=== PATIENT | female | born 1970 | race Caucasian/White ===

== ENCOUNTER 2017-03-01 19:16 | Emergency (ER) | payer OTHER ==
--- NOTE | 2017-03-01 23:13 | RADIOLOGY REPORT (SQ) ---
EXAM DESCRIPTION: CHEST SINGLE VIEW COMPLETED DATE/TIME: 03/01/2017 10:27 pm REASON FOR STUDY: sob COMPARISON: None. EXAM PARAMETERS: NUMBER OF VIEWS: One view. TECHNIQUE: Single frontal radiographic view of the chest acquired. RADIATION DOSE: NA LIMITATIONS: None. FINDINGS: LUNGS AND PLEURA: No opacities, masses or pneumothorax. No pleural effusion. MEDIASTINUM AND HILAR STRUCTURES: No masses. Contour normal. HEART AND VASCULAR STRUCTURES: Heart normal in size. Normal vasculature. BONES: No acute findings. Multiple congenital rib anomalies. HARDWARE: None in the chest. OTHER: No other significant finding. IMPRESSION: NO ACUTE RADIOGRAPHIC FINDING IN THE CHEST. TECHNICAL DOCUMENTATION: JOB ID: [id number]
[2017-03-01 23:28] LABS: ABSOLUTE BASOPHILS # (AUTO) 0.1 10^3/uL (0.0-0.2); ABSOLUTE EOSINOPHILS # (AUTO) 0.3 10^3/uL (0.0-0.6); ABSOLUTE LYMPHOCYTES (AUTO) 3.9 10^3/uL (0.5-4.7); ABSOLUTE MONOCYTES (AUTO) 0.7 10^3/uL (0.1-1.4); ABSOLUTE NEUT (AUTO) 7.6 10^3/uL (1.7-8.2); BASOPHILS % (AUTO) 0.7 % (0-2); EOSINOPHILS % (AUTO) 2.4 % (0-6); HEMATOCRIT 41.2 % (36.0-47.0); HEMOGLOBIN 13.2 g/dL (12.0-15.5); HGB HCT DIFFERENCE -1.6; LYMPHOCYTES % (AUTO) 30.8 % (13-45); MEAN CORPUSCULAR HEMOGLOBIN 26.8 pg (27.0-33.4); MEAN CORPUSCULAR HGB CONC 32.2 g/dL (32.0-36.0); MEAN CORPUSCULAR VOLUME 83 fl (80-97); MONOCYTES % (AUTO) 5.8 % (3-13); RED BLOOD COUNT 4.95 10^6/uL (3.72-5.28); RED CELL DISTRIBUTION WIDTH 13.4 % (11.5-14.0); SEGMENTED NEUTROPHILS % (AUTO) 60.3 % (42-78); WHITE BLOOD COUNT 12.6 10^3/uL (4.0-10.5)
[2017-03-01 23:43] LABS: ANION GAP 12 (5-19); BLOOD UREA NITROGEN 12 mg/dL (7-20); CALCIUM 9.2 mg/dL (8.4-10.2); CARBON DIOXIDE 28 mmol/L (22-30); CHLORIDE 102 mmol/L (98-107); CREATININE RESULT 0.72 mg/dL (0.52-1.25); GLUCOSE 100 mg/dL (75-110); POTASSIUM 3.9 mmol/L (3.6-5.0); SODIUM 142.4 mmol/L (137-145)
--- NOTE | 2017-03-01 23:43 | EKG REPORT ---
SEVERITY:- NORMAL ECG - SINUS RHYTHM : Confirmed by: Rick Wilcox 01-Mar-2017 23:42:33
--- NOTE | 2017-03-02 00:22 | ER Document Report ---
ED General - General Chief Complaint: Shortness Of Breath Stated Complaint: SHORTNESS OF BREATH Time Seen by Provider: 03/01/17 22:11 Notes: Patient is a 46-year-old female with past medical history of obesity, htn, hld, who presents with 2 months of exertional sob, who presents with concerns of exertional sob. Denies any associated chest pain, nausea, vomiting, or syncope. Nothing is new or different about her symptoms today but she states she became increasingly concerned after another episode today. No history of DVT, pulmonary embolus, or pneumothorax. She has not seen a primary care doctor regarding today's concerns. Notes that she did have a stress test in August 2016 which was noted to be normal. She denies any hemoptysis. No estrogen use. Nothing improves or worsens her symptoms. TRAVEL OUTSIDE OF THE [place] IN LAST 30 DAYS: No Past Medical History - General Information source: Patient - Social History Smoking Status: Never Smoker Frequency of alcohol use: None Drug Abuse: None Lives with: Spouse/Significant other Family History: Reviewed & Not Pertinent Patient has suicidal ideation: No Patient has homicidal ideation: No Renal/ Medical History: Denies: Hx Peritoneal Dialysis Review of Systems - Review of Systems Notes: Constitutional: Negative for fever. HENT: Negative for sore throat. Eyes: Negative for visual changes. Cardiovascular: Negative for chest pain. Respiratory: Positive for shortness of breath. Gastrointestinal: Negative for abdominal pain, vomiting or diarrhea. Genitourinary: Negative for dysuria. Musculoskeletal: Negative for back pain. Skin: Negative for rash. Neurological: Negative for headaches, weakness or numbness. 10 point ROS negative except as marked above and in HPI. Physical Exam - Vital signs Vitals: Temp Pulse Resp BP Pulse Ox 98.2 F 83 20 116/83 96 03/01/17 20:15 03/01/17 20:15 03/01/17 20:15 03/01/17 20:15 03/01/17 20:15 Interpretation: Normal Notes: PHYSICAL EXAMINATION: GENERAL: Well-appearing, well-nourished and in no acute distress. HEAD: Atraumatic, normocephalic. EYES: Pupils equal round and reactive to light, extraocular movements intact, sclera anicteric, conjunctiva are normal. ENT: nares patent, oropharynx clear without exudates. Moist mucous membranes. NECK: Normal range of motion, supple without lymphadenopathy LUNGS: Breath sounds clear to auscultation bilaterally and equal. No wheezes rales or rhonchi. HEART: Regular rate and rhythm without murmurs ABDOMEN: Soft, nontender, normoactive bowel sounds. No guarding, no rebound. No masses appreciated. EXTREMITIES: Normal range of motion, no pitting or edema. No cyanosis. NEUROLOGICAL: No focal neurological deficits. Moves all extremities spontaneously and on command. PSYCH: Normal mood, normal affect. SKIN: Warm, Dry, normal turgor, no rashes or lesions noted. Course - Re-evaluation Re-evalutation: 03/02/17 00:21 Presentation of episodic shortness of breath over the last 2 months in an otherwise well appearing patient. Low clinical suspicion for ACS given clinical history, exam, EKG without ST elevations or depressions, and negative initial troponin. PE also seems unlikely given clinical history, absence of tachycardia or dyspnea. However, given that patient was having recurrent exertional dyspnea over the last 2 months a PE was a moderate possibility that a d-dimer assay was obtained and is noted to be negative. Will not proceed to CTA of the chest given his negative d-dimer. CXR without evidence of pneumothorax or pneumonia. No widened mediastinum. Aortic dissection also seems unlikely given history, symmetric pulses, CXR, and vitals. Exact etiology of patient's intermittent dyspnea on exertion over the last 2 months is uncertain at this time giving her reassuring evaluation here in the emergency department. I have asked that she follow-up with cardiology for consideration of an echocardiogram as well as a stress test. Of note patient did have a normal stress test 6 months ago. At this time will discharge with return precautions and follow-up recommendations. Verbal discharge instructions given a the bedside and opportunity for questions given. Medication warnings reviewed. Patient is in agreement with this plan and has verbalized understanding of return precautions and the need for primary care follow-up in the next 24-72 hours. 03/02/17 03:41 - Vital Signs Vital signs: Temp Pulse Resp BP Pulse Ox 98.0 F 75 18 121/77 98 03/02/17 00:33 03/02/17 00:33 03/02/17 00:33 03/02/17 00:33 03/02/17 00:33 - Laboratory Result Diagrams: 03/01/17 23:17 03/01/17 23:17 Laboratory results interpreted by me: 03/01/17 23:17 WBC 12.6 H MCH 26.8 L - Diagnostic Test Radiology reviewed: Image reviewed, Reports reviewed Radiology results interpreted by me: 03/02/17 00:25 Chest x-ray: No acute infiltrate or pneumothorax - EKG Interpretation by Me Additional EKG results interpreted by me: 03/02/17 00:25 Normal sinus rhythm. Rate 74. No ST elevations or depressions. QTC is 395. Discharge - Discharge Clinical Impression: Exertional dyspnea Condition: Good Disposition: HOME, SELF-CARE Additional Instructions: Please follow-up with the analog design engineer at your earliest ability for consideration of an echocardiogram as well as a stress test. Please return if you develop chest pain, persistent shortness of breath, vomiting, sweating, or any other symptoms that are worrisome to you. Referrals: SEAN HULL MD [ACTIVE STAFF] - Follow up in 3-5 days
[2017-03-02 00:34] VITALS: BP 121/77
== END 2017-03-02 00:32 | disposition home or self-care (01) ==
LOC: ER 19:16
DX: R06.00 Dyspnea, unspecified (principal)
CPT/HCPCS: 36415; 71010; 80048; 84484; 85025; 85379; 93005; 93010; 99285

== ENCOUNTER 2017-04-07 10:28 | Emergency (ER) | payer OTHER ==
--- NOTE | 2017-04-07 11:22 | ER Document Report ---
ED Headache - General Chief Complaint: Headache Stated Complaint: HEADACHE Time Seen by Provider: 04/07/17 11:21 Mode of Arrival: Ambulatory Information source: Patient TRAVEL OUTSIDE OF THE [place] IN LAST 30 DAYS: No - HPI Patient complains to provider of: Headache Patient reports: No: Brain neoplasm, Congenital anomally, Frequent migraines, Hx chronic headaches, Occasional migraines, Prior CVA, Prior neurologic eval, Prior hemorrhage, Prior TBI, [employer] Shunt Onset: Yesterday - EVENING Onset was: Gradual Timing: Still present Quality of pain: Dull, Other - SENSATION OF SCALP SORENESS Severity: Moderate Context: denies: CO exposure, Head injury, Insect bite, Meningitis exposure, Tick bite Preceding symptoms: denies: Typical of prior aura(s), Visual disturbance Associated symptoms: Chills, Nausea/vomiting - NAUSEA ONLY, NO EMESIS, Other - TACHYCARDIA LAST PM, UP TO 140. denies: Double/blurred vision, Fever, Photophobia, Speech problems, Stiff neck, Sweaty, Trouble walking Exacerbated by: Position - SLIGHTLY BETTER W/ HEAD ELEVATED Similar symptoms previously: No Recently seen / treated by doctor: No - Related Data Allergies/Adverse Reactions: adhesive tape Allergy (Verified 04/07/17 11:02) Home Medications: Current Home Medications Buspirone HCl [Buspirone HCl] 5 mg PO DAILY 04/07/17 [History] Clonazepam [Clonazepam] 1 tab PO QHS 04/07/17 [History] Duloxetine HCl [Duloxetine HCl] 60 mg PO DAILY 04/07/17 [History] Metoprolol Succinate 12.5 mg PO DAILY 04/07/17 [History] Montelukast Sodium 10 mg PO DAILY 04/07/17 [History] Ropinirole HCl [Ropinirole HCl] 4 mg PO QHS 04/07/17 [History] Past Medical History - General Information source: Patient - Social History Smoking Status: Never Smoker Cigarette use (# per day): No Chew tobacco use (# tins/day): No Frequency of alcohol use: None Drug Abuse: None Lives with: Family Family History: Reviewed & Not Pertinent Patient has suicidal ideation: No Patient has homicidal ideation: No - Past Medical History Cardiac Medical History: Reports: Other - TACHYCARDIA, TAKES METOPROLOL Pulmonary Medical History: Reports: None EENT Medical History: Reports: None Neurological Medical History: Reports: None Endocrine Medical History: Reports: None Renal/ Medical History: Reports: None. 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 Skin Medical History: Reports None Psychiatric Medical History: Reports: Hx Depression Past Surgical History: Reports: Hx Appendectomy, Hx Cholecystectomy, Hx Gynecologic Surgery - L ovary removed, endomitriosis, c section, Hx Orthopedic Surgery - herniated disk L4-L5, Hx Tonsillectomy - adenoids Review of Systems - Review of Systems Constitutional: See HPI EENT: No symptoms reported Cardiovascular: No symptoms reported Respiratory: No symptoms reported Gastrointestinal: See HPI Genitourinary: No symptoms reported Female Genitourinary: No symptoms reported Musculoskeletal: No symptoms reported Skin: No symptoms reported Neurological/Psychological: See HPI Physical Exam - Vital signs Interpretation: Normal. No: Tachycardic, Tachypneic, Febrile - General General appearance: Appears well, Alert In distress: None - HEENT Head: Normocephalic Eyes: Normal, Other - NO PHOTOPHOBIA Conjunctiva: Normal Extraocular movements intact: Yes Pupils: PERRL Anterior chamber: Normal Fundascopic: Normal Ears: Normal External canal: Normal Tympanic membrane: Normal Nasal: Normal Mouth/Lips: Normal Mucous membranes: Dry - MILDLY Pharynx: Normal Neck: Normal, Supple - Respiratory Respiratory status: No respiratory distress Breath sounds: Normal - Cardiovascular Rhythm: Regular Heart sounds: Normal auscultation Murmur: No - Abdominal Inspection: Obese Bowel sounds: Normal - Extremities General upper extremity: Normal inspection General lower extremity: Normal inspection - Neurological Neuro grossly intact: Yes Cognition: Normal Orientation: AAOx4 - Psychological Associated symptoms: Normal affect, Normal mood - Skin Skin Temperature: Warm Skin Moisture: Dry Skin Color: Normal Skin Turgor: Elastic Course - Re-evaluation Re-evalutation: 04/07/17 15:25 PATIENT REPORTS ONLY SLIGHT IMPROVEMENT. RESULTS OF TESTING DISCUSSED. WILL TREAT SYMPTOMATICALLY. - Laboratory Result Diagrams: 04/07/17 10:50 04/07/17 10:50 Laboratory results interpreted by me: 04/07/17 10:50 Alkaline Phosphatase 127 H - Diagnostic Test Radiology reviewed: Image reviewed, Reports reviewed Discharge - Discharge Clinical Impression: Headache Qualifiers: Headache type: tension-type Headache chronicity pattern: acute headache Intractability: not intractable Qualified Code(s): G44.209 - Tension-type headache, unspecified, not intractable Condition: Stable Disposition: HOME, SELF-CARE Instructions: Headache ([facility]), Oral Narcotic Medication ([facility]) Additional Instructions: REST DRINK PLENTY OF FLUIDS. YOU MAY TAKE FIORICET FOR HEADACHE RELIEF IF NEEDED. CONTINUE YOUR USUAL MEDICATIONS. FOLLOW UP WITH YOUR PRIMARY CARE PROVIDER IF HEADACHE DOES NOT RESOLVE IN 24-48 HOURS. RETURN TO E.R. IF YOU GET WORSE IN ANY WAY. Prescriptions: Butalb/Acetaminophen/Caffeine [Fioricet (50-325-40 mg) Tablet] 1 - 2 tab PO Q4H PRN #20 each PRN Reason: For Headache
[2017-04-07] MEDS ORDERED: NORMAL SALINE 1000 ML 1,000 ML IV ONE (11:55)
[2017-04-07 12:41] LABS: ABSOLUTE BASOPHILS # (AUTO) 0.1 10^3/uL (0.0-0.2); ABSOLUTE EOSINOPHILS # (AUTO) 0.2 10^3/uL (0.0-0.6); ABSOLUTE LYMPHOCYTES (AUTO) 2.7 10^3/uL (0.5-4.7); ABSOLUTE MONOCYTES (AUTO) 0.6 10^3/uL (0.1-1.4); ABSOLUTE NEUT (AUTO) 6.4 10^3/uL (1.7-8.2); BASOPHILS % (AUTO) 0.7 % (0-2); LYMPHOCYTES % (AUTO) 27.4 % (13-45); MEAN CORPUSCULAR HEMOGLOBIN 27.8 pg (27.0-33.4); MEAN CORPUSCULAR HGB CONC 33.3 g/dL (32.0-36.0); MEAN CORPUSCULAR VOLUME 83 fl (80-97); MONOCYTES % (AUTO) 6.4 % (3-13); RED BLOOD COUNT 5.04 10^6/uL (3.72-5.28); RED CELL DISTRIBUTION WIDTH 13.5 % (11.5-14.0); SEGMENTED NEUTROPHILS % (AUTO) 63.5 % (42-78)
--- NOTE | 2017-04-07 12:59 | RADIOLOGY REPORT (SQ) ---
EXAM DESCRIPTION: CT HEAD WITHOUT COMPLETED DATE/TIME: 04/07/2017 12:36 pm REASON FOR STUDY: HEADACHE COMPARISON: None. TECHNIQUE: Axial images acquired through the brain without intravenous contrast. Images reviewed wi th bone, brain and subdural windows. Images stored on PACS. All CT scanners at this facility use dose modulation, iterative reconstruction, and/or weight based d osing when appropriate to reduce radiation dose to as low as reasonably achievable (ALARA). [facility]: Dose Right [facility]: CareDose [facility]: Dose Right [facility]: Teradose 4D [facility]: Vatler RADIATION DOSE: Up-to-date CT equipment and radiation dose reduction techniques were employed. CTDIv ol: 64.6 mGy. DLP: 1163 mGy-cm. mGy. LIMITATIONS: None. FINDINGS: VENTRICLES: Normal size and contour. CEREBRUM: No masses. No hemorrhage. No midline shift. Normal de [place] santos/white matter differentiation. N o evidence for acute infarction. CEREBELLUM: No masses. No hemorrhage. No alteration of density. No evidence for acute infarction. EXTRAAXIAL SPACES: No fluid collections. No masses. ORBITS AND GLOBE: No intra- or extraconal masses. Normal contour of globe without masses. CALVARIUM: No fracture. PARANASAL SINUSES: No fluid or mucosal thickening. SOFT TISSUES: No mass or hematoma. OTHER: No other significant finding. IMPRESSION: NORMAL BRAIN CT WITHOUT CONTRAST. TECHNICAL DOCUMENTATION: JOB ID: [id number] Quality ID # [id number]: Final reports with documentation of one or more dose reduction techniques (e.g., Au tomated exposure control, adjustment of the mA and/or kV according to patient size, use of iterative reconstruction technique) 2010 [employer]- All Rights Reserved
[2017-04-07 13:23] LABS: ALANINE AMINOTRANSFERASE 27 U/L (9-52); ALBUMIN 4.1 g/dL (3.5-5.0); ALKALINE PHOSPHATASE 127 U/L (38-126); ANION GAP 11 (5-19); ASPARTATE AMINO TRANSFERASE 25 U/L (14-36); BILIRUBIN,DIRECT 0.3 mg/dL (0.0-0.4); BILIRUBIN,TOTAL 0.5 mg/dL (0.2-1.3); BLOOD UREA NITROGEN 9 mg/dL (7-20); CALCIUM 9.3 mg/dL (8.4-10.2); CARBON DIOXIDE 28 mmol/L (22-30); CHLORIDE 102 mmol/L (98-107); CREATININE RESULT 0.66 mg/dL (0.52-1.25); GLUCOSE 90 mg/dL (75-110); POTASSIUM 4.2 mmol/L (3.6-5.0); SODIUM 140.8 mmol/L (137-145); TOTAL PROTEIN 7.1 g/dL (6.3-8.2)
--- NOTE | 2017-04-07 13:43 | EKG REPORT ---
SEVERITY:- NORMAL ECG - SINUS RHYTHM : Confirmed by: Lauren Lucia MD 07-Apr-2017 13:42:30
[2017-04-07] MEDS ORDERED: BUTALB/ACETAMINOPHEN/CAFFEINE 1 TAB EACH PO ONE (15:23)
[2017-04-07 15:35] VITALS: BP 119/76
== END 2017-04-07 15:38 | disposition home or self-care (01) ==
LOC: ER 10:28
DX: G44.209 Tension-type headache, unspecified, not intractable (principal); R11.0 Nausea; R68.83 Chills (without fever); Z90.49 Acquired absence of other specified parts of digestive tract
CPT/HCPCS: 93005; 99284; 96360; 36415; 85025; 80053; 70450; 93010; J3490; J7030

== ENCOUNTER 2018-09-28 18:15 | Emergency (ER) | payer MEDICAID, OTHER ==
[2018-09-28 18:22] VITALS: BP 138/81
--- NOTE | 2018-09-28 18:31 | ER Document Report ---
ED Medical Screen (RME) - General Chief Complaint: Cough Stated Complaint: COUGH Time Seen by Provider: 09/28/18 18:29 Mode of Arrival: Ambulatory Information source: Patient TRAVEL OUTSIDE OF THE [place] IN LAST 30 DAYS: No - HPI Patient complains to provider of: cough; flu symptoms Onset: Other - pt. states she has had these symptoms for the past several weeks - Related Data Allergies/Adverse Reactions: adhesive tape Allergy (Verified 04/07/17 11:02) linaclotide [From Linzess] Allergy (Verified 09/28/18 18:27) Past Medical History - Social History Chew tobacco use (# tins/day): No Frequency of alcohol use: None Drug Abuse: None Renal/ Medical History: Denies: Hx Peritoneal Dialysis GI Medical History: Reports: Hx Gastroesophageal Reflux Disease Musculoskeltal Medical History: Reports Hx Arthritis - SPINE Psychiatric Medical History: Reports: Hx Depression Past Surgical History: Reports: Hx Appendectomy, Hx Cholecystectomy, Hx Gynecologic Surgery - L ovary removed, endomitriosis, c section, Hx Orthopedic Surgery - herniated disk L4-L5, Hx Tonsillectomy - adenoids Physical Exam - Vital signs Vitals: Temp Pulse Resp BP Pulse Ox 98.6 F 82 20 138/81 H 97 09/28/18 18:19 09/28/18 18:19 09/28/18 18:19 09/28/18 18:19 09/28/18 18:19 Course - Vital Signs Vital signs: Temp Pulse Resp BP Pulse Ox 98.6 F 82 20 138/81 H 97 09/28/18 18:19 09/28/18 18:19 09/28/18 18:19 09/28/18 18:19 09/28/18 18:19
[2018-09-28 18:57] LABS: ABSOLUTE BASOPHILS # (AUTO) 0.1 10^3/uL (0.0-0.2); ABSOLUTE EOSINOPHILS # (AUTO) 1.3 10^3/uL (0.0-0.6); ABSOLUTE LYMPHOCYTES (AUTO) 2.7 10^3/uL (0.5-4.7); ABSOLUTE MONOCYTES (AUTO) 0.6 10^3/uL (0.1-1.4); ABSOLUTE NEUT (AUTO) 4.3 10^3/uL (1.7-8.2); BASOPHILS % (AUTO) 1.1 % (0-2); EOSINOPHILS % (AUTO) 14.2 % (0-6); HEMATOCRIT 44.9 % (36.0-47.0); LYMPHOCYTES % (AUTO) 30.4 % (13-45); MEAN CORPUSCULAR HEMOGLOBIN 29.7 pg (27.0-33.4); MEAN CORPUSCULAR HGB CONC 33.5 g/dL (32.0-36.0); MEAN CORPUSCULAR VOLUME 89 fl (80-97); MONOCYTES % (AUTO) 6.5 % (3-13); PLATELET COUNT 275 10^3/uL (150-450); RED BLOOD COUNT 5.06 10^6/uL (3.72-5.28); RED CELL DISTRIBUTION WIDTH 13.7 % (11.5-14.0); SEGMENTED NEUTROPHILS % (AUTO) 47.8 % (42-78); TOTAL CELLS COUNTED % (AUTO) 100 %
[2018-09-28 18:59] LABS: APPEARANCE,URINE CLEAR; BILIRUBIN,URINE NEGATIVE (NEGATIVE); COLOR,URINE STRAW; GLUCOSE, URINE NEGATIVE (NEGATIVE); KETONES,URINE NEGATIVE (NEGATIVE); LEUKOCYTE ESTERASE,URINE NEGATIVE (NEGATIVE); NITRITE,URINE NEGATIVE (NEGATIVE); PROTEIN,URINE NEGATIVE (NEGATIVE); URINE SPECIFIC GRAVITY 1.004; UROBILINOGEN,URINE NEGATIVE mg/dL (<2.0)
[2018-09-28 19:11] LABS: A TYPE INFLUENZA AG NEGATIVE (NEGATIVE); B INFLUENZA AG NEGATIVE (NEGATIVE)
[2018-09-28 19:14] LABS: ALANINE AMINOTRANSFERASE 31 U/L (9-52); ALBUMIN 4.2 g/dL (3.5-5.0); ALKALINE PHOSPHATASE 93 U/L (38-126); ANION GAP 5 (5-19); ASPARTATE AMINO TRANSFERASE 28 U/L (14-36); BILIRUBIN,DIRECT 0.1 mg/dL (0.0-0.4); BILIRUBIN,TOTAL 0.5 mg/dL (0.2-1.3); BLOOD UREA NITROGEN 6 mg/dL (7-20); CALCIUM 9.2 mg/dL (8.4-10.2); CARBON DIOXIDE 31 mmol/L (22-30); CHLORIDE 105 mmol/L (98-107); GLUCOSE 104 mg/dL (75-110); POTASSIUM 3.9 mmol/L (3.6-5.0); SODIUM 140.5 mmol/L (137-145); TOTAL PROTEIN 6.4 g/dL (6.3-8.2)
--- NOTE | 2018-09-28 19:20 | RADIOLOGY REPORT (SQ) ---
EXAM DESCRIPTION: CHEST 2 VIEWS COMPLETED DATE/TIME: 09/28/2018 6:54 pm REASON FOR STUDY: cough; fever COMPARISON: 03/01/2017 TECHNIQUE: Frontal and lateral radiographic views of the chest acquired. NUMBER OF VIEWS: Two view. LIMITATIONS: None. FINDINGS: LUNGS AND PLEURA: No pneumothorax. No consolidation or pleural effusion. MEDIASTINUM AND HILAR STRUCTURES: Stable. HEART AND VASCULAR STRUCTURES: Stable. BONES: No acute findings. HARDWARE: None in the chest. OTHER: No other significant finding. IMPRESSION: NO ACUTE FINDINGS. TECHNICAL DOCUMENTATION: JOB ID: [id number] [place]-72 2010 [employer]- All Rights Reserved Reading location - IP/workstation name: [email or web address]
[2018-09-28] MEDS ORDERED: IPRATROPIUM/ALBUTEROL 0.5-2.5 MG/3 ML AMPUL NEB ONE (20:06)
[2018-09-28] MEDS ORDERED: BENZONATATE 100 MG CAPSULE PO ONE (20:06)
--- NOTE | 2018-09-28 20:11 | ER Document Report ---
HPI - HPI Time Seen by Provider: 09/28/18 18:29 Pain Level: 4 Context: Patient is a 48-year-old female who presents to the emergency department with a chief complaint of a cough for the past 2 months. Cough is productive, denies hemoptysis. She has a sore throat. She was treated with antibiotics and steroids multiple times for bronchitis and laryngitis. She denies any fever, but has had some body chills. She denies any nausea, vomiting, or shortness of breath. She smokes 2 packs of cigarettes a day. - CONSTITUTIONAL Constitutional: DENIES: Fever, Chills - EENT EENT: REPORTS: Sore Throat - NEURO Neurology: DENIES: Headache - CARDIOVASCULAR Cardiovascular: DENIES: Chest pain - RESPIRATORY Respiratory: REPORTS: Coughing - REPRODUCTIVE Reproductive: DENIES: : - DERM Skin Color: Normal Past Medical History - General Information source: Patient - Social History Smoking Status: Current Every Day Smoker Chew tobacco use (# tins/day): No Frequency of alcohol use: None Drug Abuse: None Family History: Reviewed & Not Pertinent Patient has suicidal ideation: No Patient has homicidal ideation: No Renal/ Medical History: Denies: Hx Peritoneal Dialysis GI Medical History: Reports: Hx Gastroesophageal Reflux Disease Musculoskeletal Medical History: Reports Hx Arthritis - SPINE Psychiatric Medical History: Reports: Hx Depression Past Surgical History: Reports: Hx Appendectomy, Hx Cholecystectomy, Hx Gynecologic Surgery - L ovary removed, endomitriosis, c section, Hx Orthopedic Surgery - herniated disk L4-L5, Hx Tonsillectomy - adenoids Vertical Provider Document - CONSTITUTIONAL Notes: PHYSICAL EXAMINATION: GENERAL: Appears well, healthy, well-nourished, no acute distress. HEAD: Normocephalic, atraumatic. EYES: PERRL, conjunctiva normal, all extraocular movements intact, sclera nonicteric ENT: Moist mucous membranes. NECK: Supple, no noticeable swelling, redness, rash. Normal range of motion. LUNGS: Expiratory wheezes noted throughout. CARDIOVASCULAR: S1-S2, regular rate, regular rhythm. Radial pulses 2+, normal. ABDOMEN: Normoactive bowel sounds. Soft, nontender, no guarding, no rebound tenderness, and no masses palpated. EXTREMITIES: Normal strength and range of motion, no pitting or edema. No cyanosis. NEUROLOGICAL: Moves all extremities upon command. Strength 5/5 in all extremities. PSYCH: Normal mood, normal affect. SKIN: Warm, dry. No rash, lesions, ulcerations noted. Normal skin turgor. - INFECTION CONTROL TRAVEL OUTSIDE OF THE [place] IN LAST 30 DAYS: No Course - Re-evaluation Re-evalutation: 09/28/18 20:05 The patient has expiratory wheezes noted bilaterally. A DuoNeb treatment will be ordered and benzonatate will be ordered for her cough. 09/28/18 20:20 Unfortunately the patient eloped without finishing her treatment. Her workup is not complete. The nursing staff is aware. - Vital Signs Vital signs: Temp Pulse Resp BP Pulse Ox 98.6 F 82 20 138/81 H 97 09/28/18 18:19 09/28/18 18:19 09/28/18 18:19 09/28/18 18:19 09/28/18 18:19 - Laboratory Result Diagrams: 09/28/18 18:43 09/28/18 18:43 Laboratory results interpreted by me: 09/28/18 09/28/18 18:43 18:43 Eosinophils % 14.2 H Absolute Eosinophils 1.3 H Carbon Dioxide 31 H BUN 6 L Discharge - Discharge Clinical Impression: Cough Disposition: ELOPED
== END 2018-09-28 20:30 | disposition left against medical advice (07) ==
LOC: ER 18:15
DX: R05 Cough (principal); J02.9 Acute pharyngitis, unspecified; R68.83 Chills (without fever); F17.210 Nicotine dependence, cigarettes, uncomplicated; R06.2 Wheezing; Z53.20 Procedure and treatment not carried out because of patient's decision for unspecified reasons
CPT/HCPCS: 36415; 71046; 80053; 81001; 85025; 87804; 99281

== ENCOUNTER 2019-12-23 23:38 | Emergency (ER) | payer MEDICAID ==
[2019-12-23] MEDS ORDERED: ONDANSETRON HCL INJ/PF 4 MG/2 ML SDV IV ONE (23:51)
[2019-12-24] MEDS ORDERED: NORMAL SALINE 1000 ML 1,000 ML IV ONE (00:12)
[2019-12-24] MEDS ORDERED: MORPHINE SULFATE 10 MG/ML INJ IV ONE (00:12)
[2019-12-24] MEDS ORDERED: ONDANSETRON HCL INJ/PF 4 MG/2 ML SDV ONE (00:13)
[2019-12-24] MEDS ORDERED: PANTOPRAZOLE SODIUM 40 MG VIAL IV ONE (00:13)
--- NOTE | 2019-12-24 00:14 | ER Document Report ---
ED GI/ - General Chief Complaint: Abdominal Pain Stated Complaint: ABDOMINAL PAIN Time Seen by Provider: 12/24/19 00:05 Primary Care Provider: ADRIANE RICHEY PA-C [Primary Care Provider] - Follow up as needed Notes: Patient is a 49-year-old female that comes emergency department for chief complaint of mid upper abdominal pain with vomiting. She states this started at 3 PM, she vomited about 8 times, nonbloody. She reports normal normal bowel movements. She denies fever. She denies chest pain, flank pain. She has had a cholecystectomy, has a history of gastric sleeve, also has a history of pancreatitis. She states she has not drink alcohol in 2 days, she smokes daily, denies recreational drugs. Daily medications are omeprazole, Seroquel, Klonopin. Patient states she is already scheduled and awaiting endoscopy with her [facility]. TRAVEL OUTSIDE OF THE [place] IN LAST 30 DAYS: No - Related Data Allergies/Adverse Reactions: adhesive tape Allergy (Verified 04/07/17 11:02) linaclotide [From Linzess] Allergy (Verified 09/28/18 18:27) Past Medical History - General Information source: Patient - Social History Smoking Status: Current Every Day Smoker Frequency of alcohol use: None Drug Abuse: None Lives with: Family Family History: Reviewed & Not Pertinent Patient has suicidal ideation: No Patient has homicidal ideation: No Endocrine Medical History: Reports: Hx Diabetes Mellitus Type 2 - diet controlled Renal/ Medical History: Denies: Hx Peritoneal Dialysis GI Medical History: Reports: Hx Gastroesophageal Reflux Disease Musculoskeletal Medical History: Reports Hx Arthritis - SPINE Psychiatric Medical History: Reports: Hx Depression Past Surgical History: Reports: Hx Appendectomy, Hx Section, Hx Cholecystectomy, Hx Gynecologic Surgery - L ovary removed, endomitriosis, c section, Hx Orthopedic Surgery - herniated disk L4-L5, Hx Tonsillectomy - adenoids - Immunizations Hx Diphtheria, Pertussis, Tetanus Vaccination: Yes Review of Systems - Review of Systems Constitutional: No symptoms reported EENT: No symptoms reported Cardiovascular: No symptoms reported Respiratory: No symptoms reported Gastrointestinal: See HPI Genitourinary: No symptoms reported Female Genitourinary: No symptoms reported Musculoskeletal: No symptoms reported Skin: No symptoms reported Hematologic/Lymphatic: No symptoms reported Neurological/Psychological: No symptoms reported Physical Exam - Vital signs Vitals: Temp Pulse Resp BP Pulse Ox 98.2 F 77 19 160/92 H 99 12/23/19 23:43 12/23/19 23:43 12/23/19 23:43 12/23/19 23:43 12/23/19 23:43 - Notes Notes: GENERAL: Slightly restless but not in severe distress HEAD: Normocephalic, atraumatic. EYES: Pupils equal, round, and reactive to light. Extraocular movements intact. ENT: Oral mucosa moist, tongue midline. Oropharynx unremarkable. Airway patent. NECK: Full range of motion. Supple. Trachea midline. No lymphadenopathy. LUNGS: Clear to auscultation bilaterally, no wheezes, rales, or rhonchi. No respiratory distress. Non-tender chest wall. HEART: Regular rate and rhythm. No murmur ABDOMEN: Tenderness in the mid upper abdomen and left upper quadrant. Remaining abdomen is soft and benign. No guarding, rigidity, or distention. Bowel sounds are present. GENITOURINARY: Deferred EXTREMITIES: Moves all 4 extremities spontaneously. No edema, normal radial and dorsalis pedis pulses bilaterally. No cyanosis. BACK: no cervical, thoracic, lumbar midline tenderness. No saddle anesthesia, normal distal neurovascular exam. Moves all extremities in full range of motion. NEUROLOGICAL: Alert and oriented x3. Normal speech. Cranial nerves II through XII grossly intact. Strength 5/5 in all extremities. PSYCH: Somewhat restless SKIN: Warm, dry, normal turgor. No rashes or lesions noted. Course - Re-evaluation Re-evalutation: Patient initially somewhat uncomfortable and restless in appearance, she has tenderness along the epigastric and left upper quadrant areas, remaining abdomen is soft and benign. Patient describes the pain as "a burning sharp pain" and she is nauseated. After initial medications patient is improved, she was given p.o. medications including Carafate, Phenergan, Percocet. On reevaluation she appears comfortable. She is tolerated p.o. without any difficulty, she drank fluids without any difficulty. CBC shows mild leukocytosis with elevation of neutrophils, nonspecific given patient's exam. Chemistry unremarkable, lipase unremarkable, hCG is negative. Patient has a gastric sleeve, she drinks alcohol frequently reportedly, she smokes, she drinks a lot of caffeine. I suspect a component of esophagitis/gastritis. Patient already has follow-up endoscopy plan because of intermittent symptoms which were worse tonight. Very low suspicion of acute abdomen. Patient will be discharged with recommended adjustments to her lifestyle and diet, medications, follow-up instructions, and return precautions which I discussed in detail. Patient states understanding and agreement with plan. Stable and well-appearing at time of discharge. - Vital Signs Vital signs: Temp Pulse Resp BP Pulse Ox 98.1 F 74 20 145/91 H 96 12/24/19 03:30 12/24/19 01:40 12/24/19 03:30 12/24/19 03:30 12/24/19 03:30 - Laboratory Result Diagrams: 12/24/19 00:15 12/24/19 00:15 Laboratory results interpreted by me: 12/24/19 12/24/19 00:15 00:15 WBC 12.9 H Absolute Neuts (auto) 10.3 H Seg Neutrophils % 79.7 H BUN 6 L Glucose 132 H Discharge - Discharge Clinical Impression: Upper abdominal pain Vomiting Qualifiers: Vomiting type: unspecified Vomiting Intractability: non-intractable Nausea presence: with nausea Qualified Code(s): R11.2 - Nausea with vomiting, unspecified Condition: Stable Disposition: HOME, SELF-CARE Additional Instructions: Your symptoms and examination indicate gastritis/esophagitis (inflammation of your upper gastrointestinal tract). Take Phenergan for nausea, take Carafate and Pepcid as prescribed to help treat this, you can take additional Rolaids, Tums, Maalox, etc. if needed. Continue your current medications otherwise. Avoid NSAIDs, alcohol, smoking, caffeine, spicy food. Start with clear fluids, progress to bland diet. Follow-up with your [facility] for additional evaluation management including your endoscopy. Return if you worsen including uncontrolled vomiting, vomiting blood, black stools, severe pain, fever of 100.4 or greater, or any other concerning or worsening symptoms. Prescriptions: Sucralfate [Carafate 1 gm Tablet] 1 gm PO QID #20 tablet Famotidine [Pepcid 20 mg Tablet] 20 mg PO BID #14 tablet Promethazine HCl [Phenergan 25 mg Tablet] 25 mg PO Q6H PRN #20 tablet PRN Reason: Referrals: ADRIANE RICHEY PA-C [Primary Care Provider] - Follow up as needed
[2019-12-24 00:36] LABS: ABSOLUTE BASOPHILS # (AUTO) 0.1 10^3/uL (0.0-0.2); ABSOLUTE EOSINOPHILS # (AUTO) 0.3 10^3/uL (0.0-0.6); ABSOLUTE LYMPHOCYTES (AUTO) 1.7 10^3/uL (0.5-4.7); ABSOLUTE MONOCYTES (AUTO) 0.5 10^3/uL (0.1-1.4); ABSOLUTE NEUT (AUTO) 10.3 10^3/uL (1.7-8.2); BASOPHILS % (AUTO) 0.7 % (0-2); EOSINOPHILS % (AUTO) 2.4 % (0-6); HEMATOCRIT 43.5 % (36.0-47.0); HEMOGLOBIN 14.7 g/dL (12.0-15.5); LYMPHOCYTES % (AUTO) 13.3 % (13-45); MEAN CORPUSCULAR HEMOGLOBIN 29.4 pg (27.0-33.4); MEAN CORPUSCULAR HGB CONC 33.9 g/dL (32.0-36.0); MEAN CORPUSCULAR VOLUME 87 fl (80-97); MONOCYTES % (AUTO) 3.9 % (3-13); PLATELET COUNT 301 10^3/uL (150-450); RED BLOOD COUNT 5.01 10^6/uL (3.72-5.28); RED CELL DISTRIBUTION WIDTH 13.7 % (11.5-14.0); SEGMENTED NEUTROPHILS % (AUTO) 79.7 % (42-78); TOTAL CELLS COUNTED % (AUTO) 100 %; WHITE BLOOD COUNT 12.9 10^3/uL (4.0-10.5)
[2019-12-24 00:51] LABS: ALBUMIN 4.5 g/dL (3.5-5.0); ALKALINE PHOSPHATASE 126 U/L (38-126); ANION GAP 6 (5-19); ASPARTATE AMINO TRANSFERASE 28 U/L (14-36); BILIRUBIN,DIRECT 0.1 mg/dL (0.0-0.4); BILIRUBIN,TOTAL 0.6 mg/dL (0.2-1.3); BLOOD UREA NITROGEN 6 mg/dL (7-20); CALCIUM 9.3 mg/dL (8.4-10.2); CARBON DIOXIDE 30 mmol/L (22-30); CHLORIDE 102 mmol/L (98-107); GLUCOSE 132 mg/dL (75-110); POTASSIUM 3.6 mmol/L (3.6-5.0); TOTAL PROTEIN 7.5 g/dL (6.3-8.2)
[2019-12-24] MEDS ORDERED: SUCRALFATE 1 GM TABLET PO ONE (01:31)
[2019-12-24] MEDS ORDERED: PROMETHAZINE HCL 25 MG TABLET PO ONE (01:31)
[2019-12-24] MEDS ORDERED: OXYCODONE-ACETAMINOPHEN 5-325 MG TABLET PO ONE (01:31)
[2019-12-24] MEDS ORDERED: HYDROCODONE/ACETAMINOPHEN 5-325 MG (6 TAB/ER DISP) PO PRN (02:47)
[2019-12-24] MEDS ORDERED: ONDANSETRON ODT 4 MG TAB (6 TAB/ER DISP) PO PRN (02:47)
[2019-12-24 03:41] VITALS: BP 145/91
== END 2019-12-24 03:32 | disposition home or self-care (01) ==
LOC: ER 23:38
DX: R11.2 Nausea with vomiting, unspecified (principal); R10.10 Upper abdominal pain, unspecified; F17.200 Nicotine dependence, unspecified, uncomplicated; Z90.49 Acquired absence of other specified parts of digestive tract; Z98.84 Bariatric surgery status; E11.9 Type 2 diabetes mellitus without complications
CPT/HCPCS: 99284; 96361; 96374; 96375; 36415; 83690; 84703; 85025; 80053; J2270; C9113; J3490 ×2; J2405; J7030

== ENCOUNTER 2019-12-25 05:41 | Emergency (ER) | payer MEDICAID ==
[2019-12-25] MEDS ORDERED: RINGERS SOLUTION,LACTATED 1,000 ML IV ONE (06:45)
[2019-12-25] MEDS ORDERED: METOCLOPRAMIDE HCL INJ/PF 10 MG/2 ML SDV IV ONE (06:45)
[2019-12-25] MEDS ORDERED: DIPHENHYDRAMINE HCL 50 MG/ML VIAL IV ONE (06:46)
--- NOTE | 2019-12-25 07:20 | RADIOLOGY REPORT (SQ) ---
EXAM DESCRIPTION: XR ABDOMEN SUPINE AND ERECT WITH CHEST (ABD ACUTE SERIES) COMPLETED DATE/TME: 12/25/2019 06:46 CLINICAL HISTORY: 49 years Female, abd pain, n,v Comparison: None. NUMBER OF VIEWS/TECHNIQUE: 3 LIMITATIONS: None. FINDINGS: Intestinal gas pattern is within normal limits. No suspicious calcification. Grossly intact skeletal structures. No acute cardiopulmonary findings.Right upper abdominal clips. IUD. Rib deformities at the posterior right mid hemithorax, indeterminate age. Cervical spinal hardware. IMPRESSION: No acute findings.
[2019-12-25 07:46] LABS: ABSOLUTE BASOPHILS # (AUTO) 0.1 10^3/uL (0.0-0.2); ABSOLUTE LYMPHOCYTES (AUTO) 1.1 10^3/uL (0.5-4.7); ABSOLUTE MONOCYTES (AUTO) 0.4 10^3/uL (0.1-1.4); ABSOLUTE NEUT (AUTO) 8.6 10^3/uL (1.7-8.2); BASOPHILS % (AUTO) 0.7 % (0-2); EOSINOPHILS % (AUTO) 0.1 % (0-6); HEMATOCRIT 43.1 % (36.0-47.0); HEMOGLOBIN 14.9 g/dL (12.0-15.5); LYMPHOCYTES % (AUTO) 10.7 % (13-45); MEAN CORPUSCULAR HGB CONC 34.5 g/dL (32.0-36.0); MEAN CORPUSCULAR VOLUME 87 fl (80-97); MONOCYTES % (AUTO) 3.5 % (3-13); PLATELET COUNT 286 10^3/uL (150-450); RED BLOOD COUNT 4.96 10^6/uL (3.72-5.28); RED CELL DISTRIBUTION WIDTH 13.7 % (11.5-14.0); TOTAL CELLS COUNTED % (AUTO) 100 %; WHITE BLOOD COUNT 10.1 10^3/uL (4.0-10.5)
[2019-12-25 07:48] LABS: AMORPHOUS SEDIMENT,URINE 1+ /HPF; APPEARANCE,URINE TURBID; BILIRUBIN,URINE NEGATIVE (NEGATIVE); COLOR,URINE YELLOW; GLUCOSE, URINE 50 mg/dL (NEGATIVE); KETONES,URINE 20 mg/dL (NEGATIVE); LEUKOCYTE ESTERASE,URINE NEGATIVE (NEGATIVE); NITRITE,URINE NEGATIVE (NEGATIVE); PROTEIN,URINE NEGATIVE (NEGATIVE); URINE SPECIFIC GRAVITY 1.025
[2019-12-25 08:00] LABS: ALBUMIN 4.1 g/dL (3.5-5.0); ALKALINE PHOSPHATASE 119 U/L (38-126); ANION GAP 6 (5-19); ASPARTATE AMINO TRANSFERASE 33 U/L (14-36); BILIRUBIN,DIRECT 0.3 mg/dL (0.0-0.4); BILIRUBIN,TOTAL 0.6 mg/dL (0.2-1.3); BLOOD UREA NITROGEN 8 mg/dL (7-20); CALCIUM 9.1 mg/dL (8.4-10.2); CARBON DIOXIDE 30 mmol/L (22-30); CHLORIDE 101 mmol/L (98-107); GLUCOSE 136 mg/dL (75-110); TOTAL PROTEIN 6.6 g/dL (6.3-8.2)
--- NOTE | 2019-12-25 09:02 | ER Document Report ---
Entered by YA BARBER SCRIBE 12/25/19 0627 Acting as scribe for:BORA SNIDER DO ED GI/ - General Chief Complaint: Abdominal Pain Stated Complaint: ABDOMINAL PAIN VOMITING Time Seen by Provider: 12/25/19 06:17 Primary Care Provider: ADRIANE RICHEY PA-C [Primary Care Provider] - Follow up as needed Information source: Patient Notes: This 49-year-old female patient presents to the emergency department today with complaints of vomiting for the last two days. Patient reports that the main reason for her visit today is due to her inability to keep down her at home medications. Patient is s/p gastric sleeve (2016), appendectomy, and cholycystectomy. Patient denies fevers, cough, or shortness of breath. TRAVEL OUTSIDE OF THE [place] IN LAST 30 DAYS: No - Related Data Allergies/Adverse Reactions: adhesive tape Allergy (Verified 04/07/17 11:02) linaclotide [From Linzess] Allergy (Verified 09/28/18 18:27) Home Medications: Clonipine, requip, seraqual, prozac, omeprazole Past Medical History - General Information source: Patient - Social History Smoking Status: Current Every Day Smoker Cigarette use (# per day): Yes Frequency of alcohol use: None Drug Abuse: None Lives with: Family Family History: Reviewed & Not Pertinent Patient has suicidal ideation: No Patient has homicidal ideation: No Endocrine Medical History: Reports: Hx Diabetes Mellitus Type 2 - diet controlled GI Medical History: Reports: Hx Gastroesophageal Reflux Disease Musculoskeletal Medical History: Reports Hx Arthritis - SPINE Psychiatric Medical History: Reports: Hx Depression Past Surgical History: Reports: Hx Appendectomy, Hx Section, Hx Cholecystectomy, Hx Gynecologic Surgery - L ovary removed, endomitriosis, c section, Hx Orthopedic Surgery - herniated disk L4-L5, Hx Tonsillectomy - adenoids - Immunizations Hx Diphtheria, Pertussis, Tetanus Vaccination: Yes Review of Systems - Review of Systems Constitutional: denies: Fever EENT: No symptoms reported Cardiovascular: No symptoms reported Respiratory: denies: Cough, Short of breath Gastrointestinal: See HPI, Vomiting Genitourinary: No symptoms reported Female Genitourinary: No symptoms reported Musculoskeletal: No symptoms reported Skin: No symptoms reported Hematologic/Lymphatic: No symptoms reported Neurological/Psychological: No symptoms reported -: Yes All other systems reviewed and negative Physical Exam - Vital signs Vitals: Temp Pulse Resp BP Pulse Ox 98.6 F 67 16 149/89 H 95 12/25/19 05:45 12/25/19 05:45 12/25/19 05:45 12/25/19 05:45 12/25/19 05:45 - Notes Notes: Physical Exam: General: Alert, appears well. HEENT: Normocephalic. Atraumatic. PERRL. Extraocular movements intact. Oropharynx clear. Dry mucous membranes. Neck: Supple. Non-tender. Respiratory: No respiratory distress. Clear and equal breath sounds bilaterally. Cardiovascular: Regular rate and rhythm. Abdominal: Epigastric tenderness with palpation. No distension. Normal Bowel Sounds. Back: No gross abnormalities. Extremities: Moves all four extremities. Upper extremities: Normal inspection. Normal ROM. Lower extremities: Normal inspection. No edema. Normal ROM. Neurological: Normal cognition. AAOx4. Normal speech. Psychological: Normal affect. Normal Mood. Skin: Warm. Dry. Normal color. Course - Re-evaluation Re-evalutation: 12/25/19 08:32 MDM 49 year old with distatn gastric sleeve seen yesterday with abd epigastric pain and nausea and vomiting and could not tolerate po last night. Returned for reeval. Exam is benign and workup here is reassuring. Symptoms have abated. - Vital Signs Vital signs: Temp Pulse Resp BP Pulse Ox 98.2 F 69 16 131/75 H 96 12/25/19 08:29 12/25/19 08:29 12/25/19 08:29 12/25/19 08:29 12/25/19 08:29 - Laboratory Result Diagrams: 12/25/19 07:30 12/25/19 07:30 Laboratory results interpreted by me: 12/25/19 12/25/19 12/25/19 07:14 07:30 07:30 Lymph % (Auto) 10.7 L Absolute Neuts (auto) 8.6 H Seg Neutrophils % 85.0 H Glucose 136 H Urine Glucose (UA) 50 H Urine Ketones 20 H Urine Urobilinogen 2.0 H Urine Ascorbic Acid 40 H Discharge - Discharge Clinical Impression: Dehydration Nausea & vomiting Qualifiers: Vomiting type: unspecified Vomiting Intractability: non-intractable Qualified Code(s): R11.2 - Nausea with vomiting, unspecified Condition: Good Disposition: HOME, SELF-CARE Instructions: Abdominal Pain ([facility]), Antinausea Medication ([facility]), Clear Liquid Diet ([facility]), Intravenous (IV) Fluids ([facility]), Vomiting ([facility]) Additional Instructions: Rest, clear liquids as discussed. Please return here for problems or concerns including but not limited to abdominal pain with fever or persistent vomiting. Prescriptions: Promethazine HCl 12.5 mg RC TID #8 supp.rect Referrals: ADRIANE RICHEY PA-C [Primary Care Provider] - Follow up as needed I personally performed the services described in the documentation, reviewed and edited the documentation which was dictated to the scribe in my presence, and it accurately records my words and actions.
[2019-12-25 09:30] VITALS: BP 131/70
== END 2019-12-25 09:30 | disposition home or self-care (01) ==
LOC: ER 05:41
DX: E86.0 Dehydration (principal); R11.2 Nausea with vomiting, unspecified; R10.9 Unspecified abdominal pain; F17.210 Nicotine dependence, cigarettes, uncomplicated; E11.9 Type 2 diabetes mellitus without complications; Z98.84 Bariatric surgery status; Z90.49 Acquired absence of other specified parts of digestive tract
CPT/HCPCS: 99283; 96361; 96374; 96375; 36415; 83605; 83690; 83735; 85025; 81025; 80053; 81001; 74022; J1200; J2765; J7120

== ENCOUNTER 2020-05-14 01:30 | Emergency (ER) | payer MEDICAID ==
[2020-05-14 01:41] VITALS: BP 169/96
== END 2020-05-14 01:50 | disposition left against medical advice (07) ==
LOC: ER 01:30
DX: Z53.21 Procedure and treatment not carried out due to patient leaving prior to being seen by health care provider (principal)